=== PATIENT | male | born 1975 | race Caucasian/White ===

== ENCOUNTER 2018-03-27 21:41 | Emergency (ER) | payer BC ==
[2018-03-27] MEDS ORDERED: NA CHLORIDE 0.9% 1,000 ML ONE (22:11)
[2018-03-27] MEDS ORDERED: ASPIRIN EC 81 MG TAB PO ONE (22:11)
[2018-03-27 22:26] LABS: Absolute Lymphocytes (CBC) 3.4 K/uL (0.7-4.9); Absolute Monocytes 0.7 K/uL (0.1-1.3); Absolute Neutrophil 4.1 K/uL (1.8-8.0); Basophils % 0.7 % (0-1.3); Eosinophils % 6.4 % (0-4.4); Hematocrit 40.5 % (39.6-49.0); Lymphocytes % 38.7 % (15.3-44.8); MCH 29.8 pg (27.0-35.0); MCV 87.2 fL (80-100); MPV 7.8 fL (7.6-11.3); Monocytes % 8.1 % (3.3-12.3); RBC Red Blood Cell Count 4.64 M/uL (4.33-5.43)
[2018-03-27 22:27] LABS: Protime INR 0.93
[2018-03-27 22:46] LABS: ALT/SGPT 30 U/L (12-78); AST/SGOT 24 U/L (15-37); Albumin 3.8 g/dL (3.4-5.0); Alkaline Phosphatase 60 U/L (45-117); BUN Blood Urea Nitrogen 14 mg/dL (7-18); Bicarbonate 28 mmol/L (21-32); Bilirubin Direct 0.1 mg/dL (0-0.2); Bilirubin Total 0.3 mg/dL (0.2-1.0); Glucose Level 98 mg/dL (74-106); Lipase 157 U/L (73-393); Magnesium 2.2 mg/dL (1.8-2.4); NT PRO-BNP 11 pg/mL (<125); Potassium 3.7 mmol/L (3.5-5.1); Protein, Total 7.4 g/dL (6.4-8.2); Sodium Level 141 mmol/L (136-145); Troponin (Emerg Dept Use Only) < 0.02 ng/mL (0.0-0.045)
[2018-03-27] MEDS ORDERED: KETOROLAC 30 MG/ML INJ ONE (22:57)
[2018-03-27 23:08] LABS: Barbiturates NEGATIVE (NEGATIVE); Benzodiazepines NEGATIVE (NEGATIVE); Cocaine NEGATIVE (NEGATIVE); METHAMPHETAM NEGATIVE (NEGATIVE); Methadone NEGATIVE (NEGATIVE); Opiates NEGATIVE (NEGATIVE); Phencyclidine NEGATIVE (NEGATIVE); THC Cannibis NEGATIVE (NEGATIVE)
[2018-03-28 00:13] LABS: Urine Blood NEGATIVE (NEG); Urine Glucose NEGATIVE (NEG); Urine Protein NEGATIVE (NEG); Urine Specific Gravity 1.025 (1.005-1.030); Urine pH 5.5 (5.0-7.0)
--- NOTE | 2018-03-28 00:59 | ER ---
Nurse's Notes [facility] Name: Reji Cristobal Age: 42 yrs Sex: Male : 1975 Arrival Date: 03/27/2018 Time: 21:42 Bed 24 Private MD: William Erickson Diagnosis: Other chest pain Presentation: 03/27 21:50 Presenting complaint: Patient states: that he is having left sided chest pain that fc radiates to left shoulder blade. Positive for shortness of breath but denies any nausea or vomiting. Denies any injury to shoulder. Worse pain with laying down but feels better while he is standing. Transition of care: patient was not received from another setting of care. Onset of symptoms was March 27, 2018 at 10:00. Risk Assessment: Do you want to hurt yourself or someone else? Patient reports no desire to harm self or others. Initial Sepsis Screen: Does the patient meet any 2 criteria? No. Patient's initial sepsis screen is negative. Does the patient have a suspected source of infection? No. Patient's initial sepsis screen is negative. Care prior to arrival: Medication(s) given: Motrin, 800 mg, last at 2130. 21:50 Method Of Arrival: Ambulatory 21:50 Acuity: RANDI 3 fc Historical: - Allergies: 21:52 No Known Allergies; fc - Home Meds: 21:52 lisinopril 10 mg Oral tab 1 tab once daily [Active]; fc - PMHx: 21:52 Hypertension; fc - PSHx: 21:52 None; fc - Immunization history:: Last tetanus immunization: up to date Flu vaccine is not up to date. - Social history:: Smoking status: Patient/guardian denies using tobacco. - Ebola Screening: : Patient negative for fever greater than or equal to 101.5 degrees Fahrenheit, and additional compatible Ebola Virus Disease symptoms Patient denies exposure to infectious person Patient denies travel to an Ebola-affected area in the 21 days before illness onset. - Family history:: not pertinent. Screenin:53 Abuse screen: Denies threats or abuse. Nutritional screening: No deficits noted. fc Tuberculosis screening: No symptoms or risk factors identified. Fall Risk None identified. Assessment: 22:23 General: Appears comfortable, well groomed, well developed, well nourished, Behavior is fc cooperative, appropriate for age, anxious. General: pt reports that pain eases up when he is sitting straight up. Pain: Complains of pain in chest and anterior aspect of left shoulder Pain began started earlier this am, got worse this evening. Neuro: Level of Consciousness is awake, alert, obeys commands, Oriented to person, place, time, situation, Appropriate for age. Cardiovascular: Patient's skin is warm and dry. Rhythm is sinus rhythm. Respiratory: Airway is patent Respiratory effort is even, unlabored, Respiratory pattern is regular, symmetrical. GI: No signs and/or symptoms were reported involving the gastrointestinal system. : No signs and/or symptoms were reported regarding the genitourinary system. EENT: No signs and/or symptoms were reported regarding the EENT system. Derm: No signs and/or symptoms reported regarding the dermatologic system. 22:54 Reassessment: Patient appears in no apparent distress at this time. No changes from fc previously documented assessment. Patient and/or family updated on plan of care and expected duration. Pain level reassessed. Patient is alert, oriented x 3, equal unlabored respirations, skin warm/dry/pink. pt provided urine specimen, no needs at this time. 03/28 00:18 Reassessment: Patient appears in no apparent distress at this time. No changes from tl3 previously documented assessment. Patient and/or family updated on plan of care and expected duration. Pain level reassessed. Patient is alert, oriented x 3, equal unlabored respirations, skin warm/dry/pink. pt returned from CT, second troponin drawn and sent to lab. 01:24 Reassessment: Patient appears in no apparent distress at this time. No changes from tl3 previously documented assessment. Patient and/or family updated on plan of care and expected duration. Pain level reassessed. Patient is alert, oriented x 3, equal unlabored respirations, skin warm/dry/pink. 01:26 Pain: Pain does not radiate. tl3 Vital Signs: 03/27 21:52 BP 127 / 93; Pulse 68; Resp 18; Temp 98.1(O); Pulse Ox 97% on R/A; Weight 108.86 kg fc (R); Height 6 ft. 0 in. (182.88 cm) (R); Pain 9/10; 22:23 BP 117 / 85; Pulse 64; Resp 18; Pulse Ox 99% on R/A; fc 22:54 BP 127 / 89; Pulse 64; Resp 18; Pulse Ox 98% on R/A; fc 03/28 00:18 BP 112 / 83; Pulse 64; Resp 18; Pulse Ox 96% on R/A; tl3 01:24 BP 114 / 88; Pulse 64; Resp 18; Pulse Ox 98% on R/A; tl3 03/27 21:52 Body Mass Index 32.55 (108.86 kg, 182.88 cm) ED Course: 03/27 21:42 Patient arrived in ED. am2 21:42 William Erickson DO is Private Physician. am2 21:51 Triage completed. fc 21:52 Arm band placed on Patient placed in an exam room, on a stretcher. fc 21:53 Patient has correct armband on for positive identification. Placed in gown. Bed in low fc position. Call light in reach. 21:56 Georgi Head MD is Attending Physician. katherine 22:17 X-ray completed. Portable x-ray completed in exam room. Patient tolerated procedure ls3 well. 22:21 XRAY Chest (1 view) In Process Unspecified. EDMS 22:23 Adult w/ patient. secured entrance monitor on. Pulse ox on. NIBP on. fc 22:23 No provider procedures requiring assistance completed. Initial lab(s) drawn, by me, fc sent to lab. EKG done, by ED staff, X-ray(s) taken. Inserted saline lock: 20 gauge in right antecubital area, using aseptic technique. Blood collected. 22:48 UDS Sent. 23:04 Nathan Amaya NP is PHCP. pm1 23:[address] via wheelchair. kw1 03/28 00:07 CT completed. Patient tolerated procedure well. Patient moved back from CT. kw1 00:11 CT Aorta for Dissection In Process Unspecified. EDMS 00:18 Angeline Larson, CARLOZ is Primary Nurse. tl3 00:58 William Erickson DO is Referral Physician. pm1 01:24 IV discontinued, intact, bleeding controlled, No redness/swelling at site. Pressure tl3 dressing applied. 01:26 Patient maintains SpO2 saturation greater than 95% on room air. tl3 Administered Medications: 03/27 22:11 Drug: NS 0.9% 1000 ml Route: IV; Rate: 125 ml/hr; Site: right antecubital; mg2 03/28 01:27 Follow up: IV Status: Completed infusion; IV Intake: 750ml tl3 03/27 22:11 Drug: Aspirin 162 mg Route: PO; mg2 03/28 00:21 Follow up: Response: No adverse reaction tl3 03/27 22:52 Drug: TORadol 30 mg Route: IVP; Site: right antecubital; mg2 03/28 00:21 Follow up: Response: No adverse reaction; Pain is decreased tl3 Intake: 01:27 IV: 750ml; Total: 750ml. tl3 Outcome: 00:58 Discharge ordered by MD. pm1 01:24 Discharged to home ambulatory. tl3 01:24 Condition: stable 01:24 Discharge instructions given to patient, Instructed on discharge instructions, follow up and referral plans. medication usage, Demonstrated understanding of instructions, follow-up care, medications, Prescriptions given X 1. 01:27 Patient left the ED. tl3 Signatures: Dispatcher [employer] EDMS Georgi Head MD MD cha Chretien, Felicia, RN RN fc Nathan Amaya NP WEB ANALYST pm1 Dana Haskins am2 Berkley Simpson kw1 Angeline Larson RN RN tl3 Carlito Guillory RN RN mg2 Amina Hanson 3
--- NOTE | 2018-03-28 00:59 | EDPHYS ---
Physician Documentation [facility] Name: Reji Cristobal Age: 42 yrs Sex: Male : 1975 Arrival Date: 03/27/2018 Time: 21:42 Bed 24 Private MD: Dre [facility] ED Physician Georgi Head HPI: 03/27 22:54 This 42 yrs old Male presents to ER via Ambulatory with complaints of Chest katherine Pain > 30 y/o, Shoulder Pain. 22:54 The patient or guardian reports chest pain that is located primarily in the anterior katherine chest wall, left, anterior aspect of left upper chest. Onset: this morning, today. The pain does not radiate. Associated signs and symptoms: The patient has no apparent associated signs or symptoms. The chest pain is described as sharp. Modifying factors: The symptoms are alleviated by remaining still, the symptoms are aggravated by breathing, cough, movement, palpation of area, twisting torso. Severity of pain: At its worst the pain was mild in the emergency department the pain is unchanged. The patient has not experienced similar symptoms in the past. Historical: - Allergies: 21:52 No Known Allergies; fc - Home Meds: 21:52 lisinopril 10 mg Oral tab 1 tab once daily [Active]; fc - PMHx: 21:52 Hypertension; fc - PSHx: 21:52 None; fc - Immunization history:: Last tetanus immunization: up to date Flu vaccine is not up to date. - Social history:: Smoking status: Patient/guardian denies using tobacco. - Ebola Screening: : Patient negative for fever greater than or equal to 101.5 degrees Fahrenheit, and additional compatible Ebola Virus Disease symptoms Patient denies exposure to infectious person Patient denies travel to an Ebola-affected area in the 21 days before illness onset. - Family history:: not pertinent. ROS: 22:54 Constitutional: Negative for fever, chills, and weight loss, Eyes: Negative for injury, katherine pain, redness, and discharge, ENT: Negative for injury, pain, and discharge, Neck: Negative for injury, pain, and swelling, Respiratory: Negative for shortness of breath, cough, wheezing, and pleuritic chest pain, Abdomen/GI: Negative for abdominal pain, nausea, vomiting, diarrhea, and constipation, Back: Negative for injury and pain, : Negative for injury, bleeding, discharge, and swelling, MS/Extremity: Negative for injury and deformity, Skin: Negative for injury, rash, and discoloration, Neuro: Negative for headache, weakness, numbness, tingling, and seizure, Psych: Negative for depression, anxiety, suicide ideation, homicidal ideation, and hallucinations, Allergy/Immunology: Negative for hives, rash, and allergies, Endocrine: Negative for neck swelling, polydipsia, polyuria, polyphagia, and marked weight changes, Hematologic/Lymphatic: Negative for swollen nodes, abnormal bleeding, and unusual bruising. 22:54 Cardiovascular: Positive for chest pain, of the anterior aspect of left upper chest. Exam: 22:54 Constitutional: This is a well developed, well nourished patient who is awake, alert, katherine and in no acute distress. Head/Face: Normocephalic, atraumatic. Eyes: Pupils equal round and reactive to light, extra-ocular motions intact. Lids and lashes normal. Conjunctiva and sclera are non-icteric and not injected. Cornea within normal limits. Periorbital areas with no swelling, redness, or edema. ENT: Nares patent. No nasal discharge, no septal abnormalities noted. Tympanic membranes are normal and external auditory canals are clear. Oropharynx with no redness, swelling, or masses, exudates, or evidence of obstruction, uvula midline. Mucous membranes moist. Neck: Trachea midline, no thyromegaly or masses palpated, and no cervical lymphadenopathy. Supple, full range of motion without nuchal rigidity, or vertebral point tenderness. No Meningismus. Cardiovascular: Regular rate and rhythm with a normal S1 and S2. No gallops, murmurs, or rubs. Normal PMI, no JVD. No pulse deficits. Respiratory: Lungs have equal breath sounds bilaterally, clear to auscultation and percussion. No rales, rhonchi or wheezes noted. No increased work of breathing, no retractions or nasal flaring. Abdomen/GI: Soft, non-tender, with normal bowel sounds. No distension or tympany. No guarding or rebound. No evidence of tenderness throughout. Back: No spinal tenderness. No costovertebral tenderness. Full range of motion. Male : Normal genitalia with no discharge or lesions. Skin: Warm, dry with normal turgor. Normal color with no rashes, no lesions, and no evidence of cellulitis. MS/ Extremity: Pulses equal, no cyanosis. Neurovascular intact. Full, normal range of motion. Neuro: Awake and alert, GCS 15, oriented to person, place, time, and situation. Cranial nerves II-XII grossly intact. Motor strength 5/5 in all extremities. Sensory grossly intact. Cerebellar exam normal. Normal gait. Psych: Awake, alert, with orientation to person, place and time. Behavior, mood, and affect are within normal limits. 22:54 Chest/axilla: Inspection: normal, Palpation: tenderness, that is mild, of the anterior aspect of left upper chest, Axilla: are normal, no acute changes, Lymph nodes: lymphadenopathy is not appreciated. 22:56 Cardiovascular: Rate: normal, Rhythm: regular, Pulses: no pulse deficits are katherine appreciated, Heart sounds: normal, murmur, not appreciated, rub, not appreciated, gallop, not appreciated, S1, normal, S2, normal, Edema: is not appreciated, JVD: is not appreciated. Vital Signs: 21:52 BP 127 / 93; Pulse 68; Resp 18; Temp 98.1(O); Pulse Ox 97% on R/A; Weight 108.86 kg fc (R); Height 6 ft. 0 in. (182.88 cm) (R); Pain 9/10; 22:23 BP 117 / 85; Pulse 64; Resp 18; Pulse Ox 99% on R/A; fc 22:54 BP 127 / 89; Pulse 64; Resp 18; Pulse Ox 98% on R/A; 03/28 00:18 BP 112 / 83; Pulse 64; Resp 18; Pulse Ox 96% on R/A; tl3 01:24 BP 114 / 88; Pulse 64; Resp 18; Pulse Ox 98% on R/A; tl3 03/27 21:52 Body Mass Index 32.55 (108.86 kg, 182.88 cm) MDM: 03/27 21:56 Patient medically screened. [facility] 22:56 Data reviewed: vital signs, nurses notes, lab test result(s), EKG, radiologic studies, [facility] CT scan, plain films. 03/28 00:58 Counseling: I had a detailed discussion with the patient and/or guardian regarding: the pm1 historical points, exam findings, and any diagnostic results supporting the discharge/admit diagnosis, lab results, radiology results, the need for outpatient follow up, to return to the emergency department if symptoms worsen or persist or if there are any questions or concerns that arise at home. 03/27 21:59 Order name: Basic Metabolic Panel; Complete Time: 22:47 katherine 03/27 21:59 Order name: CBC with Diff; Complete Time: 22:47 katherine 03/27 21:59 Order name: LFT's; Complete Time: 22:47 03/27:59 Order name: Magnesium; Complete Time: 22:47 03/27 21:59 Order name: NT PRO-BNP; Complete Time: 22:47 03/27 21:59 Order name: PT-INR; Complete Time: 22:47 katherine 03/27 21:59 Order name: Troponin (emerg Dept Use Only); Complete Time: 22:47 [facility] 03/27 21:59 Order name: XRAY Chest (1 view) 03/27 21:59 Order name: Lipase; Complete Time: 22:47 katherine 03/27 21:59 Order name: UDS; Complete Time: 23:48 03/27 22:49 Order name: CT Aorta for Dissection 03/27 22:50 Order name: Troponin (emerg Dept Use Only); Complete Time: 00:57 [facility] 03/27 23:02 Order name: Urine Dipstick--Ancillary (enter results); Complete Time: 00:15 nc 03/27 21:59 Order name: EKG; Complete Time: 22:01 [facility] 03/27 21:59 Order name: Cardiac monitoring; Complete Time: 22:11 katherine 03/27 21:59 Order name: EKG - Nurse/Tech; Complete Time: 22:11 03/27:59 Order name: IV Saline Lock; Complete Time: 22:12 [facility] 03/27 21:59 Order name: Labs collected and sent; Complete Time: 22:12 [facility] 03/27 21:59 Order name: O2 Per Protocol; Complete Time: 22:12 [facility] 03/27 21:59 Order name: O2 Sat Monitoring; Complete Time: 22:12 [facility] 03/27 21:59 Order name: Urine Dipstick-Ancillary (obtain specimen); Complete Time: 22:48 [facility] 03/27 22:50 Order name: Repeat Cardiac Enzymes at: midnight; Complete Time: 01:27 [facility] Administered Medications: 10/22 22:11 Drug: NS 0.9% 1000 ml Route: IV; Rate: 125 ml/hr; Site: right antecubital; mg2 03/28 01:27 Follow up: IV Status: Completed infusion; IV Intake: 750ml tl3 03/27 22:11 Drug: Aspirin 162 mg Route: PO; mg2 03/28 00:21 Follow up: Response: No adverse reaction tl3 03/27 22:52 Drug: TORadol 30 mg Route: IVP; Site: right antecubital; mg2 03/28 00:21 Follow up: Response: No adverse reaction; Pain is decreased tl3 Disposition: 06:24 Co-signature as Attending Physician, Georgi Head MD I agree with the assessment and [facility] plan of care. Disposition: 03/28/18 00:58 Discharged to Home. Impression: Other chest pain. - Condition is Stable. - Discharge Instructions: Nonspecific Chest Pain, Chest Wall Pain, Nonspecific Chest Pain, [id number], Aspirin and Your Heart. - Prescriptions for Motrin IB 200 mg Oral Tablet - take 2 tablet by ORAL route every 6 hours As needed as needed with food; 30 tablet. - Medication Reconciliation Form, Thank You Letter, Antibiotic Education, Prescription Opioid Use, Work release form form. - Follow up: William Erickson; When: 2 - 3 days; Reason: Recheck today's complaints, Continuance of care, Re-evaluation by your physician. - Problem is new. - Symptoms have improved. Signatures: Dispatcher [employer] Georgi Vanessa MD MD cha Chretien, Felicia, RN RN fc Marinas, Patrick, [employer] COMM[employer]ITY MANAGER pm1 Angeline Larson RN RN tl3 Carlito Guillory RN RN mg2 Corrections: (The following items were deleted from the chart) 01: 00:58 03/28/2018 00:58 Discharged to Home. Impression: Other chest pain. Condition is tl3 Stable. Discharge Instructions: Nonspecific Chest Pain, Chest Wall Pain, Nonspecific Chest Pain, [id number], Aspirin and Your Heart. Prescriptions for Motrin IB 200 mg Oral Tablet - take 2 tablet by ORAL route every 6 hours As needed as needed with food; 30 tablet. and Forms are Medication Reconciliation Form, Thank You Letter, Antibiotic Education, Prescription Opioid Use. Follow up: William Erickson; When: 2 - 3 days; Reason: Recheck today's complaints, Continuance of care, Re-evaluation by your physician. Problem is new. Symptoms have improved. pm1
--- NOTE | 2018-03-28 08:24 | RAD REPORT ---
EXAM DESCRIPTION: RAD - Chest Single View - 03/27/2018 10:21 pm CLINICAL HISTORY: CHEST PAIN Chest pain. COMPARISON: No comparisons FINDINGS: Portable technique limits examination quality. The lungs are grossly clear. The heart is normal in size. No displaced fractures. IMPRESSION: No acute intrathoracic process suspected.
--- NOTE | 2018-03-28 08:27 | RAD REPORT ---
EXAM DESCRIPTION: CT - Angio Aorta For Dissection - 03/28/2018 2:51 am CLINICAL HISTORY: Chest pain radiating to the back. CHEST PAIN COMPARISON: No comparisons TECHNIQUE: CT angiography of the aorta was performed with MIPs. All CT scans are performed using dose optimization technique as appropriate and may include automated exposure control or mA/KV adjustment according to patient size. FINDINGS: A left aortic arch is present with normal branching pattern of the great vessels.No acute aortic finding is seen such as aneurysm, penetrating ulcer or dissection. The celiac axis, SMA, SILVIA and renal arteries are widely patent. No evidence of pulmonary embolism. The lungs are clear. The liver demonstrates no focal mass or biliary dilatation.Mild fatty liver suspected.The spleen, aranda creas, adrenal glands and kidneys are within normal limits for arterial phase imaging. No bowel obstruction, free fluid or abscess.Sigmoid diverticulosis coli without diverticulitis.No pat hologic enlarged lymphadenopathy identified.The appendix is normal. No fracture or worrisome bone lesion seen. IMPRESSION: No acute aortic finding is demonstrated.
--- NOTE | 2018-03-28 12:12 | EKG ---
Test Date: 2018-03-27 Test Time: 22:02:20 [employer] Motor Mechanic: TRACI MEASUREMENT RESULTS: Intervals: Rate: 71 IA: 164 QRSD: 90 QT: 376 QTc: 408 [place]: P: 33 IA: 164 QRS: -14 T: 9 INTERPRETIVE STATEMENTS: Normal sinus rhythm Moderate voltage criteria for LVH, may be normal variant Borderline ECG No previous ECG available for comparison Electronically Signed On 03-28-18 12:10:25 CDT by Iftikhar Escalante
== END 2018-03-28 01:27 | disposition home or self-care (01) ==
LOC: ER 21:41
DX: R07.89 Other chest pain (principal); I10 Essential (primary) hypertension
CPT/HCPCS: 36415; 71045; 71275; 74175; 80048; 80076; 80307; 81003; 83690; 83735; 83880; 84484; 85025; 85610; 93005; 96361; 96374; 99285; J7030; Q9967

== ENCOUNTER 2018-07-25 19:17 | Emergency (ER) | payer BC ==
[2018-07-25] MEDS ORDERED: predniSONE 20 MG TAB ONE (20:14)
[2018-07-25] MEDS ORDERED: ALBUTEROL 2.5 MG/3 ML NEB SOL ONE (20:14)
[2018-07-25] MEDS ORDERED: CETIRIZINE HCL 5 MG TABLET ONE (20:14)
[2018-07-25] MEDS ORDERED: FAMOTIDINE 20 MG TAB ONE (20:14)
--- NOTE | 2018-07-25 20:38 | ER ---
Nurse's Notes [facility] Name: Reji Cristobal Age: 42 yrs Sex: Male : 1975 Arrival Date: 07/25/2018 Time: 19:21 Bed 13 Private MD: William Erickson Diagnosis: Allergy status to drugs, medicaments and biological substances;Acute bronchitis, unspecified Presentation: 07/25 19:25 Presenting complaint: Patient states: Took Tamiflu and Benzonatate pills about 1815 and lp1 began feeling tingling to general body and numbness around lips and mouth; "My throat is tingling a little". Transition of care: patient was not received from another setting of care. Onset: The symptoms/episode began/occurred just prior to arrival. Onset of symptoms was July 25, 2018 at 19:00. Risk Assessment: Do you want to hurt yourself or someone else? Patient reports no desire to harm self or others. Initial Sepsis Screen: Does the patient meet any 2 criteria? No. Patient's initial sepsis screen is negative. Does the patient have a suspected source of infection? No. Patient's initial sepsis screen is negative. Care prior to arrival: None. 19:25 Method Of Arrival: Ambulatory lp1 19:25 Acuity: RANDI 2 lp1 19:40 Anaphylaxis evaluation, the patient reports or I have noted the following symptoms ao which indicate a significant risk of anaphylaxis: urticaria. Historical: - Allergies: 19:27 No Known Allergies; lp1 - Home Meds: 19:27 lisinopril 10 mg Oral tab 1 tab once daily [Active]; lp1 - PMHx: 19:27 Hypertension; lp1 - PSHx: 19:27 None; lp1 - Immunization history:: Adult Immunizations up to date. - Social history:: Smoking status: Patient/guardian denies using tobacco. - Ebola Screening: : No symptoms or risks identified at this time. Screenin:40 Abuse screen: Denies threats or abuse. Denies injuries from another. Nutritional ao screening: No deficits noted. Tuberculosis screening: No symptoms or risk factors identified. Fall Risk None identified. Assessment: 19:38 General: Appears in no apparent distress. comfortable, Behavior is calm, cooperative, ao appropriate for age. Pain: Complains of pain in right arm Pain currently is 8 out of 10 on a pain scale. Quality of pain is described as burning. Neuro: Level of Consciousness is awake, alert, obeys commands, Oriented to person, place, time, situation, Appropriate for age Moves all extremities. Full function Speech is normal, Facial droop on right. Cardiovascular: Heart tones S1 S2 Capillary refill < 3 seconds Patient's skin is warm and dry. Respiratory: Airway is patent Respiratory effort is even, unlabored, Respiratory pattern is regular, symmetrical, Breath sounds are clear bilaterally. GI: Abdomen is round obese. : No signs and/or symptoms were reported regarding the genitourinary system. EENT: No signs and/or symptoms were reported regarding the EENT system. Derm: Skin is intact, Rash noted that is macular, red, on right arm. Musculoskeletal: Circulation, motion, and sensation intact. 21:10 Reassessment: Patient reported swelling lips. Cordelia was notified and stated to hold DC ao for a while until patient is ready. 22:10 Reassessment: DC instructions given to patient. Patient agree with the POC and to ao follow up with PCP. Pt stated to follow up id more Ativan is needed. Vital Signs: 19:27 BP 136 / 86; Pulse 96; Resp 18; Temp 98.1(O); Pulse Ox 97% on R/A; Weight 113.4 kg; lp1 Height 6 ft. 0 in. (182.88 cm); Pain 0/10; 21:14 BP 129 / 75; Pulse 85; Resp 16; Temp 97.8(O); Pulse Ox 98% on R/A; Pain 0/10; ao 19:27 Body Mass Index 33.91 (113.40 kg, 182.88 cm) lp1 ED Course: 19:21 Patient arrived in ED. es 19:22 William Erickson DO is Private Physician. es 19:26 Triage completed. lp1 19:27 Arm band placed on left wrist. lp1 19:35 Cordelia Tomas FNP-C is [facility]. snw 19:35 Buck Romero MD is Attending Physician. snw 19:37 Ariel Moran, CARLOZ is Primary Nurse. ao 19:40 Patient has correct armband on for positive identification. campus monitor on. Pulse ao ox on. NIBP on. 20:37 William Erickson DO is Referral Physician. snw 22:09 No provider procedures requiring assistance completed. Patient did not have IV access ao during this emergency room visit. Administered Medications: 20:07 Drug: Albuterol 2.5 mg Route: Inhalation; ao 21:34 Follow up: Response: No adverse reaction ao 20:07 Drug: ZyrTEC - Cetirizine 10 mg Route: PO; ao 21:35 Follow up: Response: No adverse reaction ao 20:07 Drug: predniSONE 40 mg Route: PO; ao 21:35 Follow up: Response: No adverse reaction ao 20:07 Drug: Pepcid 20 mg Route: PO; ao 21:35 Follow up: Response: No adverse reaction ao 21:34 Drug: Ativan 1 mg Route: PO; ao 22:21 Follow up: Response: No adverse reaction ao Outcome: 20:37 Discharge ordered by MD. snw 22:09 Discharged to home ambulatory. ao 22:09 Condition: stable 22:09 Discharge instructions given to patient, Instructed on discharge instructions, follow up and referral plans. Demonstrated understanding of instructions, follow-up care, medications, Prescriptions given X 4. 22:11 Patient left the ED. ao Signatures: Cordelia Tomas, QUALITY SYSTEMS TECHNICIAN-C QUALITY SYSTEMS TECHNICIAN-Csnw Anh Crenshaw Laura RN RN lp1 Ariel Moran RN RN ao
--- NOTE | 2018-07-25 20:38 | EDPHYS ---
Physician Documentation [facility] Name: Reji Cristobal Age: 42 yrs Sex: Male : 1975 Arrival Date: 07/25/2018 Time: 19:21 Bed 13 Private MD: Dre [facility] ED Physician Buck Romero HPI: 07/25 19:56 This 42 yrs old Male presents to ER via Ambulatory with complaints of snw Allergic Reaction. 19:56 The patient presents with itching, localized swelling, rash, redness of skin, wheezing. snw Onset: The symptoms/episode began/occurred suddenly, just prior to arrival. Associated signs and symptoms: The patient has no apparent associated signs or symptoms. Possible causes: Tessalon, Tamiflu, and potentially zithromax. Severity of symptoms: At their worst the symptoms were moderate. The patient has not experienced similar symptoms in the past. The patient has been recently seen by a physician: the patient's primary care provider, Dr. Erickson yesterday, given medications for flu/bronchitis. Historical: - Allergies: 19:27 No Known Allergies; lp1 - Home Meds: 19:27 lisinopril 10 mg Oral tab 1 tab once daily [Active]; lp1 - PMHx: 19:27 Hypertension; lp1 - PSHx: 19:27 None; lp1 - Immunization history:: Adult Immunizations up to date. - Social history:: Smoking status: Patient/guardian denies using tobacco. - Ebola Screening: : No symptoms or risks identified at this time. ROS: 19:52 Eyes: Negative for injury, pain, redness, and discharge. snw 19:52 Neck: Negative for injury, pain, and swelling, Cardiovascular: Negative for chest pain, palpitations, and edema. 19:52 Abdomen/GI: Negative for abdominal pain, nausea, vomiting, diarrhea, and constipation, Back: Negative for injury and pain, : Negative for injury, bleeding, discharge, and swelling, MS/Extremity: Negative for injury and deformity. 19:52 Neuro: Negative for headache, weakness, numbness, tingling, and seizure, Psych: Negative for depression, anxiety, suicide ideation, homicidal ideation, and hallucinations, Allergy/Immunology: Positive for rash and allergies - Pt taking Tessalon, Tamiflu, and Zithromax for upper respiratory s/s and flulike s/s x 1 week. Pt's Daughter dx with flu last week 19:52 Constitutional: Positive for body aches, chills, fatigue, malaise. 19:52 ENT: Positive for anterior lymphadenopathy. 19:52 Respiratory: Positive for cough, shortness of breath, wheezing. 19:52 Skin: Positive for rash, diffusely, swelling to anterior neck and bilateral axilla - improved. Exam: 19:51 Head/Face: Normocephalic, atraumatic. Eyes: Pupils equal round and reactive to light, snw extra-ocular motions intact. Lids and lashes normal. Conjunctiva and sclera are non-icteric and not injected. Cornea within normal limits. Periorbital areas with no swelling, redness, or edema. ENT: Nares patent. No nasal discharge, no septal abnormalities noted. Tympanic membranes are normal and external auditory canals are clear. Oropharynx with no redness, swelling, or masses, exudates, or evidence of obstruction, uvula midline. Mucous membranes moist. 19:51 Chest/axilla: Normal chest wall appearance and motion. Nontender with no deformity. No lesions are appreciated. Cardiovascular: Regular rate and rhythm with a normal S1 and S2. No gallops, murmurs, or rubs. Normal PMI, no JVD. No pulse deficits. 19:51 Abdomen/GI: Soft, non-tender, with normal bowel sounds. No distension or tympany. No guarding or rebound. No evidence of tenderness throughout. Back: No spinal tenderness. No costovertebral tenderness. Full range of motion. 19:51 MS/ Extremity: Pulses equal, no cyanosis. Neurovascular intact. Full, normal range of motion. Neuro: Awake and alert, GCS 15, oriented to person, place, time, and situation. Cranial nerves II-XII grossly intact. Motor strength 5/5 in all extremities. Sensory grossly intact. Cerebellar exam normal. Normal gait. Psych: Awake, alert, with orientation to person, place and time. Behavior, mood, and affect are within normal limits. 19:51 Constitutional: The patient appears alert, anxious, restless, uncomfortable, hyperemic 19:51 Neck: External neck: is normal, C-spine: appears grossly normal, ROM/movement: is normal, Lymph nodes: lymphadenopathy is appreciated. 19:51 Respiratory: the patient does not display signs of respiratory distress, Respirations: normal, Breath sounds: wheezing: is heard diffusely, worse to right. 19:51 Skin: Appearance: normal except for affected area, flushing, noted on the right arm and left arm. Vital Signs: 19:27 BP 136 / 86; Pulse 96; Resp 18; Temp 98.1(O); Pulse Ox 97% on R/A; Weight 113.4 kg; lp1 Height 6 ft. 0 in. (182.88 cm); Pain 0/10; 21:14 BP 129 / 75; Pulse 85; Resp 16; Temp 97.8(O); Pulse Ox 98% on R/A; Pain 0/10; ao 19:27 Body Mass Index 33.91 (113.40 kg, 182.88 cm) lp1 MDM: 19:39 Patient medically screened. snw Administered Medications: 20:07 Drug: Albuterol 2.5 mg Route: Inhalation; ao 21:34 Follow up: Response: No adverse reaction ao 20:07 Drug: ZyrTEC - Cetirizine 10 mg Route: PO; ao 21:35 Follow up: Response: No adverse reaction ao 20:07 Drug: predniSONE 40 mg Route: PO; ao 21:35 Follow up: Response: No adverse reaction ao 20:07 Drug: Pepcid 20 mg Route: PO; ao 21:35 Follow up: Response: No adverse reaction ao 21:34 Drug: Ativan 1 mg Route: PO; ao 22:21 Follow up: Response: No adverse reaction ao Disposition: 20:37 Chart complete. Chart complete. snw 07/26 00:34 Co-signature as Attending Physician, Buck Romero MD. rn Disposition: 07/25/18 20:37 Discharged to Home. Impression: Allergy status to drugs, medicaments and biological substances, Acute bronchitis, unspecified. - Condition is Stable. - Discharge Instructions: Acute Bronchitis, Adult, Allergies, Adult, Drug Allergy, Rehydration, Adult. - Prescriptions for Zyrtec 10 mg Oral Tablet - take 1 tablet by ORAL route once daily As needed; 20 tablet. Prednisone 20 mg Oral Tablet - take 2 tablet by ORAL route once daily for 5 days; 10 tablet. Albuterol Sulfate 90 mcg/actuation - inhale 1-2 puff by INHALATION route every 4-6 hours; 1 Inhaler. Pepcid 20 mg Oral Tablet - take 1 tablet by ORAL route once daily; 20 tablet. - Work release form, Medication Reconciliation Form, Thank You Letter, Antibiotic Education, Prescription Opioid Use form. - Follow up: William Erickson DO; When: 2 - 3 days; Reason: Recheck today's complaints, Continuance of care, Re-evaluation by your physician. Follow up: Emergency Department; When: As needed; Reason: Trouble breathing, Worsening of condition. Signatures: Cordelia Tomas, INSULATION BOARD CALENDER OPERATOR-C INSULATION BOARD CALENDER OPERATOR-Csnw Buck Romero MD MD rn Elisa Orozco RN RN lp1 Ariel Moran RN RN ao Corrections: (The following items were deleted from the chart) 07/25 22:11 20:37 07/25/2018 20:37 Discharged to Home. Impression: Allergy status to drugs, ao medicaments and biological substances; Acute bronchitis, unspecified. Condition is Stable. Forms are Medication Reconciliation Form, Thank You Letter, Antibiotic Education, Prescription Opioid Use. Follow up: William Erickson; When: 2 - 3 days; Reason: Recheck today's complaints, Continuance of care, Re-evaluation by your physician. Follow up: Emergency Department; When: As needed; Reason: Trouble breathing, Worsening of condition. snw
[2018-07-25] MEDS ORDERED: LORAZEPAM 0.5 MG TABLET ONE (21:43)
== END 2018-07-25 22:11 | disposition home or self-care (01) ==
LOC: ER 19:17
DX: Z88.8 Allergy status to other drugs, medicaments and biological substances (principal); J20.9 Acute bronchitis, unspecified; R21 Rash and other nonspecific skin eruption; I10 Essential (primary) hypertension
CPT/HCPCS: 99284; J7512